=== PATIENT | female | born 1945 | race African-American/Black ===

== ENCOUNTER 2020-04-02 12:56 | Inpatient (IN) | payer OTHER ==
[~2020-04-02] VITALS: Ht 162.6 cm; Wt 72.6 kg
--- NOTE | ~2020-04-02 | EMS ---
[address] [address] EMS Patient Care Report Name: ESTUARDO PRYOR Room #: PRE MRosemary#: [id number] Admission: Attend Phys: Discharge: Date of : 49 Report #: [id number] THIS REPORT FOR: //name// Report Transmitted: 04/02/2020 12:49 EMS Care Summary [place], [place] Incident [id number] @ 04/02/2020 12:09 Incident Location [id number] [place] [address] Patient ESTUARDO PRYOR Female, 75 Years 1945 Patient Address [id number] [place] [address] Patient History Stroke/CVA, Patient Allergies Sulfa,Meperidine, Patient Medications Aspirin, Lisinopril, Amlodipine, Lipitor, Chief Complaint Left sided weakness Disposition Transported Lights/Kevin Dispatch Reason Stroke/CVA Transported To [facility] Narrative Responded to the address for report of a patient experiencing stroke like symptoms. Arrived on scene at the single family residence and found the patient sitting in the recliner of her living room alert and oriented x4 with a GCS of 15. The patients daughter was on scene and the patients daughter advised that [address] [address] EMS Patient Care Report Name: ESTUARDO PRYOR Room #: PRE Olinda#: [id number] Admission: Attend Phys: Discharge: Date of : 49 Report #: [id number] the patients last known well was approximately 24 hours ago and that she had arrived at the residence approximately 30 minutes prior to EMS arrival. The patients daughter advised that she called because the patient was acting strangely and advised that the patient was normally ambulatory. 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 The patients daughter also advised that the patients eye was normally like that. The patient was then assessed on scene and found to have a very weak top lift compresser on her left hand side. The patient had no further findings on a [place] pre[facility] stroke assessment. The patient was also noted to be on o2 at 4 liters per minute by nasal cannula. The pumper crew advised that it was placed onto the patient due to low o2 saturation. The patient based on her appearance had no signs of poor perfusion and was noted to have nail maltese on during assessment. The patient was maintained on 4 LPM by nasal cannula throughout the entirety of the call as a precaution. The patient was then moved to the stretcher and then out of the residence to the ambulance for transport. During transport the a stroke activation was called to the receiving facility due to the findings of left sided weakness on a [place] pre[facility] stroke assessment. The patient had no further changes in mental status or condition during transport. Patient care was then transferred to the receiving facility without incident. Med unit back in service. Initial Vitals @12:35P: 38,Pain: 0/10,SpO2: 91,SD Suspected: false @12:38P: 81,CO: 0,SpO2: 100,SD Suspected: false @12:34P: 96,R: 18,BP: 160/91,Pain: 0/10,GCS: 15,Glucose: 86,SpO2: 96,Revised Trauma: 12, @12:45P: 94,R: 18,BP: 130/43,Pain: 0/10,GCS: 15,SpO2: 93,Revised Trauma: 12, Assessments @12:30MENTAL:Person Oriented,Time Oriented,Event Oriented,Place Oriented,SKIN:HEENT:Head/Face: Other,Eyes: Right: Other,Neck/Airway: No Abnormalities,LUNG SOUNDS:General: No Abnormalities,ABDOMEN:General: No Abnormalities,PELVIS//GI:EXTREMITIES:PULSE:Radial: 2+ Normal,NEURO:Weakness Left-Sided, Impression Stroke Procedures @12:3812-Lead ECGResponse: UnchangedSucceeded@12:30ALS AssessmentResponse: UnchangedSucceeded@12:36Saline Lock 7cc (18 ga) Site: Antecubital-RightResponse: UnchangedFailed@12:353-Lead ECGResponse: UnchangedSucceeded@12:47Saline Lock 7cc (18 ga) Site: Antecubital-LeftResponse: UnchangedFailed@PTAOxygen FlowRate: 4 Device: Nasal Cannula (NC) Response: UnchangedSucceeded [facility] [address] [place] [address] EMS Patient Care Report Name: ESTUARDO PRYOR Room #: LYNN Prakash#: [id number] Admission: Attend Phys: Discharge: Date of : 49 Report #: [id number] Timeline INSURANCE CODER,Oxygen FlowRate: 4 Device: Nasal Cannula (NC) Response: UnchangedSucceeded, 12:06,Call Received 12:06,Dispatch Notified 12:09,Dispatched 12:10,En Route 12:28,On Scene 12:30,At Patient 12:30,ALS Assessment,Response: UnchangedSucceeded, 12:34,BP: 160/91 M,PULSE: 96,RR: 18 R,SPO2: 96 Ox,ETCO2: ,B,PAIN: 0,GCS: 15, 12:35,3-Lead ECG,Response: UnchangedSucceeded, 12:35,BP: / M,PULSE: 38,RR: R,SPO2: 91 Ox,ETCO2: ,BG: ,PAIN: 0,GCS: , 12:36,Saline Lock 7cc 18 ga Site: Antecubital-Right,Response: UnchangedFailed, 12:38,12-Lead ECG,Response: UnchangedSucceeded, 12:38,BP: / M,PULSE: 81,RR: R,SPO2: 100 Ox,ETCO2: ,BG: ,PAIN: ,GCS: , 12:44,Depart Scene 12:45,BP: 130/43 M,PULSE: 94,RR: 18 R,SPO2: 93 Ox,ETCO2: ,BG: ,PAIN: 0,GCS: 15, 12:47,Saline Lock 7cc 18 ga Site: Antecubital-Left,Response: UnchangedFailed, 12:51,At Destination 13:35,Call Closed Disclaimer v1.1 Copyright 2020 [employer] This EMS Care Summary contains data elements from the applicable legal record (which may be displayed differently). It is designed to provide pertinent information for the following purposes: continuity of care, clinical quality, and state data reporting. The complete legal record is available to ED staff and administrators of the receiving hospital in [employer]'s Patient Tracker. All data is provided "as is."
[2020-04-02 12:57] VITALS: BP 108/87
[2020-04-02 13:25] LABS: ABSOLUTE NEUTROPHILS 2.5 thou/uL (1.4-8.2); BASOPHILS 0.9 % (0.0-2.0); EOSINOPHILS 1.5 % (0.0-3.0); HEMATOCRIT 42.8 % (37.0-47.0); HEMOGLOBIN 14.4 gm/dL (12.0-15.0); LYMPHOCYTES 52.9 % (24.0-44.0); MCH 31.2 pg (26.0-34.0); MCHC 33.7 g/dL (28.0-37.0); MCV 92.6 fL (80.0-100.0); MONOCYTES 9.7 % (1.0-8.0); PLATELET COUNT 258 thou/uL (150-400); RBC 4.62 mil/uL (4.20-5.00); RDW 13.4 % (10.5-14.5); WBC 7.2 thou/uL (4.0-11.0)
[2020-04-02 13:31] LABS: CALCIUM 10.6 mg/dL (8.5-10.1); CREATININE 1.1 mg/dL (0.6-1.0); POTASSIUM 3.7 mmol/L (3.5-5.1)
[2020-04-02 13:37] LABS: ALBUMIN 4.2 g/dL (3.4-5.0); TOTAL BILIRUBIN 0.7 mg/dL (0.2-1.0); TOTAL PROTEIN 7.3 g/dL (6.4-8.2)
[2020-04-02] MEDS ORDERED: CHILDREN'S ASPI81 M1 PO (13:45)
[2020-04-02] MEDS ORDERED: NORVASC10 MG PO (13:45)
[2020-04-02] MEDS ORDERED: FOSAMAX 70 MG T70 MG PO (13:45)
[2020-04-02] MEDS ORDERED: LIPITOR40 MG PO (13:46)
[2020-04-02] MEDS ORDERED: CALCI-MIX500 MG PO (13:46)
[2020-04-02] MEDS ORDERED: SYNTHROID125 MC1 PO (13:47)
[2020-04-02] MEDS ORDERED: CALCITRATE200 MG PO (13:47)
[2020-04-02] MEDS ORDERED: SUPER THERAVIT1 EACH PO ×2 (13:47→13:48)
[2020-04-02] MEDS ORDERED: LISINOPRIL5 MG PO (13:47)
[2020-04-02 13:57] LABS: URINE BILIRUBIN NEGATIVE (Negative); URINE BLOOD NEGATIVE (Negative); URINE CLARITY CLEAR; URINE COLOR YELLOW; URINE GLUCOSE-RANDOM* NEGATIVE (Negative); URINE KETONES NEGATIVE (Negative); URINE LEUKOCYTES-REFLEX 1+ (Negative); URINE NITRITE-REFLEX NEGATIVE (Negative); URINE PROTEIN (DIPSTICK) NEGATIVE (Negative); URINE SPECIFIC GRAVITY <= 1.005 (1.005-1.035); URINE UROBILINOGEN 0.2 E.U./dl (0.2-1.0)
[2020-04-02 14:12] LABS: CASTS None Seen /LPF (None Seen); CRYSTALS None Seen /LPF (None Seen); SQUAMOUS 0-3 Few /LPF (0-3)
[2020-04-02 14:14] LABS: BACTERIA-REFLEX 1-9 Few /HPF (None Seen); URINE RBC None Seen /HPF (0-2); URINE WBC-REFLEX 0-5 Rare /HPF (0-5)
--- NOTE | 2020-04-02 14:29 | EKG ---
[place] [address] [place] [address] ELECTROCARDIOGRAM REPORT Name: ESTUARDO PRYOR [facility] [id number] Admission: 04/02/20 Attend Phys: Discharge: Date of : 49 Report #: [id number] [facility] ED Test Date: 2020-04-02 Test Time: 14:04:06 Pat Name: ESTUARDO PRYOR Department: Room: Gender: F Rework Machine Operator: prakash : 1945 Requested By: Ezra Stiles Order Number: [id number] MD: Domenic Perkins Measurements Intervals Sidney Rate: 67 P: 62 TX: 156 QRS: 16 QRSD: 79 T: 75 QT: 411 QTc: 434 Interpretive Statements Sinus rhythm Low voltage, precordial leads Abnormal R-wave progression, early transition J Point elevation II, AVF No previous ECG available for comparison Electronically Signed On 04-02-2020 14:29:20 INDUSTRIAL COOK by Domenic Perkins [email or web address] <ELECTRONICALLY SIGNED> By: Domenic Perkins MD, [facility] 04/02/20 1429 1404 1404 Domenic Perkins MD, FACC /EPI
[2020-04-02 15:29] LABS: CHOLESTEROL 203 mg/dL (<200); HDL CHOLESTEROL 64 mg/dL (>40); LDL CHOLESTEROL 125 mg/dL (<100); TC:HDL 3.2 Ratio (Not establshd); TRIGLYCERIDE 72 mg/dL (<150); VLDL 14 mg/dL (<40)
--- NOTE | 2020-04-02 15:52 | 2DMMODE ---
[facility] [address] [place] [address] 2 D/M-MODE ECHOCARDIOGRAM Name: ESTUARDO PRYOR Room #: 170-7 ADM IN M.R.#: [id number] Admission: 04/02/20 Attend Phys: Jeffrey Jaime Discharge: Date of : 49 Report #: [id number] THIS REPORT FOR: cc: FAM - No family physician/PCP FAM - No family physician/PCP Fernando Jerome MD ~ APPROVED REPORT Study performed: 04/02/2020 15:08:52 EXAM: Comprehensive 2D, Doppler, and color-flow Echocardiogram Patient Location: ER Status: routine BSA: 1.78 HR: 53 bpm BP: 108/87 mmHg Rhythm: NSR/TRESSA Other Information Study Quality: Good Indications TIA Echo Enhancing Agent Indication: Rule out Shunt Agent(s) / Amount(s) Used: Agitated Saline 7 cc 2D Dimensions RVDd: 24.91 mm IVSd: 10.17 (7-11mm) LVOT Diam: 19.55 (18-24mm) LVDd: 36.56 mm PWd: 10.23 (7-11mm) Ascending Ao: 26.89 (22-36mm) LVDs: 24.36 (25-40mm) Aortic Root: 30.02 mm Volumes Left Atrial Volume (Systole) Single Plane 4CH: 32.04 mL Single Plane 2CH: 37.46 mL LA ESV Index: 22.00 mL/m2 Aortic Valve AoV Peak Julius.: 1.26 m/s [facility] [address] [place] [address] 2 D/M-MODE ECHOCARDIOGRAM Name: ESTUARDO PRYOR Room #: 170-7 ADM IN M.R.#: [id number] Admission: 04/02/20 Attend Phys: Jeffrey Sandhu Discharge: Date of : 49 Report #: [id number] AO Peak Gr.: 6.39 mmHg LVOT Max P.37 mmHg LVOT Max V: 0.77 m/s ANGELIKA Vmax: 1.83 cm2 Mitral Valve E/A Ratio: 1.3 MV Decel. Time: 203.83 ms MV E Max Julius.: 0.84 m/s MV A Julius.: 0.67 m/s MV PHT: 59.11 ms IVRT: 101.50 ms Pulmonary Valve PV Peak Julius.: 0.67 m/s PV Peak Gr.: 1.80 mmHg Pulmonary Vein P Vein S: 0.53 m/s P Vein A: 0.28 m/s P Vein D: 0.33 m/s P Vein A Dur.: 147.6 msec P Vein S/D Ratio: 1.61 Tricuspid Valve RAP Estimate: 5.00 mmHg Left Ventricle The left ventricle is normal size. There is normal LV segmental wall motion. There is normal left ventricular wall thickness. Left ventricular systolic function is normal. LVEF is 60-65%. Moderate diastolic dysfunction is present (pseudonormal filling). Right Ventricle The right ventricle is normal size. The right ventricular systolic function is normal. Atria The left atrium size is normal. Injection of bubbles documented an interatrial shunt, probable small PFO. The right atrium size is normal. Aortic Valve The aortic valve is normal in structure. No aortic regurgitation is present. There is no aortic valvular stenosis. Mitral Valve The mitral valve is normal in structure. Mild mitral annular calcification. Trace mitral regurgitation. No evidence of mitral valve stenosis. [facility] [place] [place] [address] 2 D/M-MODE ECHOCARDIOGRAM Name: ESTUARDO PRYOR Room #: 170-7 ADM IN M.R.#: [id number] Admission: 04/02/20 Attend Phys: Jeffrey Sandhu Discharge: Date of : 49 Report #: [id number] Tricuspid Valve The tricuspid valve is normal in structure. There is no tricuspid valve regurgitation noted. Unable to assess PA pressure. Pulmonic Valve The pulmonary valve is normal in structure. Mild pulmonic regurgitation. Great Vessels The aortic root is normal in size. The ascending aorta is normal in size. IVC is normal in size and collapses >50% with inspiration. Pericardium There is no pericardial effusion. <Conclusion> The left ventricle is normal size. There is normal left ventricular wall thickness. Left ventricular systolic function is normal. Moderate diastolic dysfunction is present (pseudonormal filling). The right ventricle is normal size. The left atrium size is normal. Injection of bubbles documented an interatrial shunt, probable small PFO. The aortic valve is normal in structure. Trace mitral regurgitation. <ELECTRONICALLY SIGNED> By: Fernando Jerome MD 04/02/20 1552 [id number] Fernando Jerome MD /INF
[2020-04-02 18:19] VITALS: BP 116/72
[2020-04-02 18:52] VITALS: BP 116/72
[2020-04-02 19:18] VITALS: BP 133/94
--- NOTE | 2020-04-02 23:28 | NUR ---
Pt admitted approx 191.A/OX4 with periods of forgetfulness noted. VSS. Has weakness on the left arm. 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 Up with assist of one to BSC,unsteady gait, L leg shorter than right leg. Reports multiple falls at home, fall safety education reinforced and pt reminded to call for help as needed. Call light/personal items within reach. Pt informed abstract writer she had gold necklace/earings taken off to go for MRI,ER called and items not there. Dtr Sharee notified and she indicated she took them home with her,pt updated on it. NSR on telemetry. Fall precautions in place,will continue to monitor pt. Meds sent to pharmacy.
[2020-04-03 08:08] VITALS: BP 131/68
--- NOTE | 2020-04-03 09:38 | NUR ---
SPOKE WITH DAUGHTER THIS MORNING. THE EXTENT OF WEAKNESS ON PT'S LEFT SIDE IS SIGNIFICANTLY LESS THAN TWO DAYS AGO. SHE STATED PATIENT HAS HISTORICALLY NOT APPEARED STEADY ON HER FEET AND MANY NEURO TEST HAVE BEEN DONE WITH NO EXPLANATION. HOPING FOR MORE CLARITY FROM MRI.
--- NOTE | 2020-04-03 13:13 | NUR ---
ASSUMED PT CARE THIS AM. FALL PRECAUTIONS IN PLACE. PT REPORTING WEAKNESS AND DIZZINESS UPON EXERTION. PT AMBULATORY TO THE BEDSIDE COMMODE. WHEN GETTING MRI, IT WAS REPORTED TO NURSE THAT PT HAD A PAIN SPASM FROM HER CHEST RADIATING TO HER BACK. WAS MADE AWARE, NO NEW ORDERS PUT IN. IV PATENT. MEDS TAKEN WELL THIS AM. PT ON TELE.
--- NOTE | 2020-04-03 15:08 | NUR ---
PT ADMITTED RELATED TO R/O TIA VS CVA. CM REVIEWED CHART AND SPOKE WITH CARE TEAM. CM SPOKE WITH PT'S DTR SHE INDICATED THAT PT RESIDES IN A RANCH STYLE HOUSE ALONE WITH NO STEPS TO ENTER AND NO STEPS INSIDE. DTR INDICATED [facility] HAD BEEN UNDEPENDENT WITH GAIT AND ADLS LIQUID LOADER. DTR INDICATED SOME RECENT FALLS. PT HAD A FWW AT HOME. DTR INDICATED PT DOESN'T HAVE A PCP SURRENTLY THAT THEY HOSPITAL HOP. PT HAD HOME HEALTH IN THE PAST. CHART INDICATED THAT PT HAD BEEN ON SERVICE WITH [facility] LIQUID LOADER. CM ATTEMPTED VISIT WITH PT THIS AFTERNOON PT WAS SLEEPING AND DIDN'T ROUSE. PT HAD MRI/MRA AND ECHO THIS DAY. 5N IS OON WITH PT'S INSURANCE. CM TO FOLLOW INDICATED WITH DC PLANNING.
[2020-04-03 18:57] VITALS: BP 109/69
[2020-04-03 19:19] VITALS: BP 142/70
[2020-04-04 07:09] VITALS: BP 150/76
--- NOTE | 2020-04-04 08:00 | NUR ---
progress pt a/o x4 up with mod assist gb and walker very unsteady but able to perform self cares tolieting putting on socks. c/o headache that was relieved with tylenol. voiding qs skin c/d/i tele intact reading sr/sb. continue poc.
[2020-04-04] MEDS ORDERED: LEXAPRO 10 MG T10 M1 PO (08:47)
--- NOTE | 2020-04-04 09:35 | EKG ---
[place] [address] [facility] [facility] [place] [address] ELECTROCARDIOGRAM REPORT Name: ESTUARDO PRYOR Room #: 450-P ADM IN M.R.#: [id number] Admission: 04/02/20 Attend Phys: Jeffrey Jaime Discharge: Date of : 49 Report #: [id number] [facility] Test Date: 2020-04-04 Test Time: 08:09:01 Pat Name: ESTUARDO PRYOR Department: Room: 450 P Gender: F Curling Machine Operator: CJ : 1945 Requested By: Alee Castillo Order Number: [id number] MD: Domenic Perkins Measurements Intervals [place] Rate: 71 P: 84 NE: 143 QRS: -19 QRSD: 82 T: 56 QT: 397 QTc: 432 Interpretive Statements Sinus rhythm Borderline left axis deviation Compared to ECG 04/02/2020 14:04:06 No significant changes Electronically Signed On 04-04-2020 9:35:28 DOCK OPERATIONS SUPERVISOR by Domenic Perkins [email or web address] <ELECTRONICALLY SIGNED> By: Domenic Perkins MD, [facility] 04/04/20 0935 0809 8 Domenic Perkins MD, FACC /EPI
--- NOTE | 2020-04-04 11:50 | NUR ---
Received awake on bed. On telemetry; no complains and signs of chest pain, crushing sensation and heaviness. On room air. Vital signs stable. On heart healthy diet- Nuclear medicine called this am to put patient on NPO, scheduled for procedure today. On blood sugar monitoring, taken and recorded accordingly. Assisted in ADLs. Contient of bowel and bladder, able to use bedside commode. Assisted in using bedside commode; gait belt; with L sided weakness. No nausea, no vomiting and no abdominal pain noted. With SL at R AC- intact and flushing well. Able to sit out on the chair. Pt seen and examined by Cardio MINI LAB OPERATOR- EKG and Trop ordered- done. Pt brought down via wheelchair to MD; pt scheduled for MRI as well- a/w. To continue monitoring patient. Pt seen and examined by Dr Jaime this AM, possible discharge after procedures today- CM aware.
--- NOTE | 2020-04-04 13:48 | NUR ---
CARE TEAM INDICATED THAT PT IS TO HAVE STRESS TEST AND MRI THIS DAY BUT THAT SHE WOULD LIKELY BE MEDICALLY STABLE TO DISCHARGE HOME FOLLOWING TESTS. CM ATTEMTPED PC TO PT THIS AM BUT SHE WAS HEADING OFF UNIT FOR TESTING. CM CALLED AND SPOKE WITH PT'S DTR. CM INDICATED THE ABOVE. DTR STATED THAT SHE WAS CONCERNED ABOUT PT'S ANXIETY AND WANTED THAT ADDRESSED WITH MEDS PRIOR TO DC. CM INDICATED THEY WERE RECOMMENDING HH UPON DC. DTR INDICATED PT HAD USED [facility] BEFORE BUT DIDN'T WANT TO USE THEM AGAIN. NIC ASKED DC LICENSED OCCUPATIONAL THERAPY ASSISTANT TO FAX REFERRAL TO [facility]. CM CALLED [facility] AND WASN'T ABLE TO CONFIRM RECEIPT OF IF THEY COULD ACCEPT. CM TO CALL AGAIN.
--- NOTE | 2020-04-04 15:06 | NUR ---
FAXED REFERRAL TO [facility] HH SPOKE WITH [facility] IN INTAKE THEY CANNOT ACCEPT PT DOES NOT HAVE A PCP.
[2020-04-04 15:59] VITALS: BP 138/59
[2020-04-04 16:19] VITALS: BP 138/59
[2020-04-04 19:53] VITALS: BP 141/76
--- NOTE | 2020-04-05 01:50 | NUR ---
04-04-20 CARE TRANSFERRED 1914. PT PRESENTS AGITATED AND IRRTABLE R/T NOT FULLY UNDERSTANDING WHY SHE IS NOT GOING HOME TODAY. PT REPORTS HER GOAL IS TO GO HOME. PT AAOX4, VSS, RR EVEN AND NONLABORED ON RA. PT IV RAC SL, CLEAN DRY. LATER PT CAME OUT TO NURSING STATION AND WAS PARANOID ABOUT RN ROUNDS. ON NEXT ROUND PT HAD PLACED A TRASH CAN UP AGAINST DOOR. ZERO S/S OF ACUTE DISTRESS, PT WILL CONTINE TO BE MONITOR PER PROTOCOL.
--- NOTE | 2020-04-05 12:32 | NUR ---
ASSUMED PT CARE THIS AM. PT CONFUSED THIS AM. PARANOID ABOUT THE DOOR TO HER ROOM NOT HAVING A LOCK, EXPLAINED THE REASONING FOR THIS AND SHE COMMUNICATED UNDERSTANDING. PATIENT IS WANTING TO LEAVE AND GO HOME TODAY, BUT WAS REDIREDTED ABOUT IMPORTANCE OF STAYING UNTIL DISCHARGE ORDERS ARE FINALIZED, COMMUNICATES UNDERSTANDING. CHAIR AND BED ALARM ARE ON, PT NOT CALLING WHEN NEEDING TO STAND. AMBULATORY TO THE BEDSIDE COMMODE WITH ASSISTANCE. IV PATENT. FOOD AND HYDRATION ENCOURAGED. NO PAIN NOTED.
[2020-04-05 12:57] VITALS: BP 138/59
[2020-04-05 12:59] VITALS: BP 138/59
[2020-04-05 13:44] VITALS: BP 138/59
--- NOTE | 2020-04-05 13:44 | NUR ---
CM FOLLOWED UP WITH PT AND DTR THIS DAY. DR. MULLER INDICATED THAT HE WOULD [facility] FOR HOME HEALTH SERVICES. [facility] IS ACCEPTING OF PT UPON DC AND WILL DO A SOC TOMORROW. CM ASKED [facility] TO COMPLETE DPOA DOCUMENT PER DTR'S REQUEST. PT IS AWARE AND AGREEABLE. CM CONTACTED [facility] TO ASSESS FOR POSSIBLE SECONDARY MEDICAID ELIGIBILITY. CM TO FOLLOW UP WITH PT AND DTR REGARDING TRANSPORT HOME THIS DAY. ANTICIPATED DC HOME WITH [facility] THIS DAY.
--- NOTE | 2020-04-05 15:00 | NUR ---
CHAPLAIN ROBBINS BROUGHT ME A SIGNED AND NOTORIZED DPOA FOR PATIENT. I SCANNED INTO PERCEPTIVE TO BE PART OF THE COMPLETE EMR AND TO BEE SEEN DURING FUTURE ADMITS. [facility]
--- NOTE | 2020-04-05 15:14 | NUR ---
PT TO DC HOME WITH HH [facility]ILL [facility]ER[facility] ([facility]) SPOKE WITH DR MULLER TO SEE IF HE WILL FOLLOW PT FOR HH AND HE AGREED TO FOLLOW. REFERRAL YESTERDAY FAXED TO [facility] THEY WOULD NOT ACCEPT BECAUSE PT HAS NO PCP SO I REACHED OUT TO [facility] IN INTAKE AT [facility] TO LET HER KNOW THAT DR. MULLER WILL FOLLOW SO NOW THEY CAN ACCEPT. FAXED DC ORDERS/SUMMARY SPOKE WITH [facility] SHE RECEIVED ORDERS AND WILL ARRANGE VISITS WITH PT.
[2020-04-05 16:00] VITALS: BP 138/59
[2020-04-05 16:09] VITALS: BP 138/59
--- NOTE | 2020-04-05 19:12 | NUR ---
Assumed patient care at approximately 1300. Pt was confused, she was working around the unit. Pt was assisted back to her room. Pt was unsteady during ambulation. Pt was discharged at 1656, Pt was transport via W/C by [facility] personnel. Discharge packet and instructions was given to patient prior to dicharge.
--- NOTE | 2020-04-08 21:06 | HC ---
[facility] [address] [address] CONSULTATION Name: ESTUARDO PRYOR Room #: 450-[facility] IN M.R.#: [id number] Admission: 04/02/20 Attend Phys: Jeffrey Jaime Discharge: 04/05/20 Date of : 49 Report #: [id number] THIS REPORT FOR: cc: FAM - No family physician/PCP FAM - No family physician/PCP Greg Johnson MD ~ DATE OF SERVICE: 04/02/2020 HISTORY OF PRESENT ILLNESS: This is a 75-year-old female patient who is a poor historian. There is a family member here, but she says she does not know the present history. I had initially got a call from Emergency Room physician that this patient has weakness on the left side about a couple of days' duration. When I came to see this patient, it looks like it is going on for a long time. In fact, she said she was in [facility]. Her son did not like the [facility]. They transferred her to [facility] and I do not have the records from either one of them and she reports that the problem was weakness on the left side. This happened sometime last year, but she is not totally certain. REVIEW OF SYSTEMS: A 14-point review of system is carried out. She has trouble with the right eye, which are a few years' duration. There is some aneurysm, which has been reported and she has been recommended surgery. It is a chronic problem. The left-sided weakness is not very certain what workup was done, but looks like that is a chronic problem too. Sometime, it looks like it became worse recently. She is a difficult person to get history on because she becomes emotional and this is all the 14-point review of system I can get. I need to get the record from [facility]. PAST MEDICAL HISTORY: Positive for stroke last year, which caused a left-sided weakness. I do not have any records there. FAMILY HISTORY: Negative for any early age stroke. SOCIAL HISTORY: She says she does not drink any alcohol. PHYSICAL EXAMINATION: Pretty limited. NEUROLOGIC: She says her memory is poor, but she can tell me what month it is, it takes her some time. Her speech looks intact. She could tell me what year it is, could not tell me the exact date. Cranial nerve examination, she has trouble with the right eye. This is a chronic problem. 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 She has been evaluated by contracting support specialist in that regard. She does not give a good effort on both sides. I made multiple attempts to check the strength. I think she is somewhat weak in the left side, but to me it looks like she is chronic. There is no meningeal sign. She could not cooperate with the carotid and I [facility] [address] [place] [address] CONSULTATION Name: ESTUARDO PRYOR Room #: 450-P DIS IN M.R.#: [id number] Admission: 04/02/20 Attend Phys: Jeffrey Jaime Discharge: 04/05/20 Date of : 49 Report #: [id number] tried to do the sensory. She did not cooperate well. CARDIAC: Unremarkable. LUNGS: No respiratory difficulty was noticed. VITAL SIGNS: Blood pressure is 108/87, respirations 16, pulse is 82, temperature is 97.8. LABORATORY DATA: White count is 7.2. GFR is 49. ASSESSMENT: It is difficult to tell in this patient, but looks like symptoms are chronic. She also has pretty anxious making the examination pretty difficult. I had gotten a call from Emergency Room physician and they asked me that how far along we can do the intervention if a thrombus or embolus is found and I told him that there is no time limit on it now. It depends upon if the tissue is viable and if the thrombus is present. Most of the people should have either CT angiogram, MRI and MRA if their BUN and creatinine is normal and it can be done. It looks like that did attempt CT angio is unremarkable. In this circumstance, the best thing will be to get her records from [facility] and see what they did and decide about further management on the basis of that. Symptoms are going on for more than [address] angio and perfusion is unremarkable. So, we will see. More than 50 minutes of time was spent taking care of this patient today and majority was spent counseling, coordinating and reviewing her various studies. <ELECTRONICALLY SIGNED> By: Greg Johnson MD 04/08/206 1659 11 Greg Johnson MD /nt
== END 2020-04-05 16:47 | disposition home health service (06) | DRG 303 ==
LOC: ER 12:56 → 4W 15:46 → EROBS 15:46 → 4W 18:45
PROVIDERS: Emergency Medicine; ADMIT Hospitalist; ATTEND Hospitalist
DX: I25.10 Atherosclerotic heart disease of native coronary artery without angina pectoris (principal); I69.354 Hemiplegia and hemiparesis following cerebral infarction affecting left non-dominant side; Q21.1 Atrial septal defect; R07.89 Other chest pain; R27.0 Ataxia, unspecified; I10 Essential (primary) hypertension; E78.5 Hyperlipidemia, unspecified; F32.9 Major depressive disorder, single episode, unspecified; F41.9 Anxiety disorder, unspecified; H02.401 Unspecified ptosis of right eyelid; M19.90 Unspecified osteoarthritis, unspecified site; E78.00 Pure hypercholesterolemia, unspecified; E11.9 Type 2 diabetes mellitus without complications; E89.0 Postprocedural hypothyroidism; I34.0 Nonrheumatic mitral (valve) insufficiency; R63.4 Abnormal weight loss; Z60.2 Problems related to living alone; M81.0 Age-related osteoporosis without current pathological fracture; Z79.899 Other long term (current) drug therapy; Z79.82 Long term (current) use of aspirin; Z68.27 Body mass index [BMI] 27.0-27.9, adult; Z88.2 Allergy status to sulfonamides; Z88.8 Allergy status to other drugs, medicaments and biological substances; Z85.850 Personal history of malignant neoplasm of thyroid; Z82.49 Family history of ischemic heart disease and other diseases of the circulatory system; Z83.3 Family history of diabetes mellitus
CPT/HCPCS: 10045